=== PATIENT | female | born 1995 | race Two or more races ===

== ENCOUNTER 2019-08-22 02:42 | Inpatient (IN) | payer OTHER ==
[2019-08-22] MEDS ORDERED: RINGERS SOLUTION,LACTATED 1,000 ML IV ONE (03:05)
[2019-08-22] MEDS ORDERED: RINGERS SOLUTION,LACTATED 1,000 ML IV PRN (03:05)
[2019-08-22] MEDS ORDERED: LIDOCAINE 1% INJ-PF (10 MG/ML) 30 ML SDV ONE (03:12)
[2019-08-22] MEDS ORDERED: MISOPROSTOL 0.2 MG TABLET ONE (03:12)
[2019-08-22] MEDS ORDERED: OXYTOCIN 10 UNIT/ML VIAL ONE (03:12)
[2019-08-22] MEDS ORDERED: OXYTOCIN/NORMAL SALINE 20 UNIT/1,000 ML RTUINJ ONE (03:13)
[2019-08-22 03:28] LABS: ABSOLUTE EOSINOPHILS # (AUTO) 0.1 10^3/uL (0.0-0.6); ABSOLUTE MONOCYTES (AUTO) 0.6 10^3/uL (0.1-1.4); ABSOLUTE NEUT (AUTO) 6.2 10^3/uL (1.7-8.2); MEAN CORPUSCULAR HEMOGLOBIN 31.9 pg (27.0-33.4); TOTAL CELLS COUNTED % (AUTO) 100 %
[2019-08-22 03:50] LABS: ABSOLUTE LYMPHOCYTES (AUTO) 2.2 10^3/uL (0.5-4.7); BASOPHILS % (AUTO) 0.5 % (0-2); EOSINOPHILS % (AUTO) 1.2 % (0-6); HEMATOCRIT 35.4 % (36.0-47.0); HEMOGLOBIN 12.4 g/dL (12.0-15.5); LYMPHOCYTES % (AUTO) 23.6 % (13-45); MEAN CORPUSCULAR HGB CONC 34.9 g/dL (32.0-36.0); MEAN CORPUSCULAR VOLUME 91 fl (80-97); MONOCYTES % (AUTO) 6.3 % (3-13); PLATELET COUNT 207 10^3/uL (150-450); RED BLOOD COUNT 3.88 10^6/uL (3.72-5.28); RED CELL DISTRIBUTION WIDTH 13.8 % (11.5-14.0); SEGMENTED NEUTROPHILS % (AUTO) 68.4 % (42-78); WHITE BLOOD COUNT 9.1 10^3/uL (4.0-10.5)
[2019-08-22 03:53] LABS: APPEARANCE,URINE CLOUDY; BILIRUBIN,URINE NEGATIVE (NEGATIVE); COLOR,URINE RED; GLUCOSE, URINE NEGATIVE (NEGATIVE); KETONES,URINE NEGATIVE (NEGATIVE); LEUKOCYTE ESTERASE,URINE NEGATIVE (NEGATIVE); NITRITE,URINE NEGATIVE (NEGATIVE); PROTEIN,URINE 100 mg/dL (NEGATIVE); UROBILINOGEN,URINE NEGATIVE mg/dL (<2.0)
[2019-08-22 04:37] LABS: URINE AMPHETAMINES SCREEN NEGATIVE; URINE BARBITURATES SCREEN NEGATIVE; URINE BENZODIAZEPINES SCREEN NEGATIVE; URINE COCAINE SCREEN NEGATIVE; URINE MARIJUANA (THC) SCREEN NEGATIVE; URINE METHADONE SCREEN NEGATIVE; URINE PHENCYCLIDINE SCREEN NEGATIVE
[2019-08-22] MEDS ORDERED: PHENYLEPHRINE HCL INJ/PF 10 MG/1 ML SDV ONE (04:37)
[2019-08-22] MEDS ORDERED: FENTANYL/BUPIVACAINE/NS/PF 300 MCG/150 ML RTUINJ EPI ONE (04:38)
[2019-08-22] MEDS ORDERED: BUPIVACAINE HCL 0.25 % INJ/PF (2.5 MG/1 ML) 30 ML VIAL ONE (04:38)
[2019-08-22] MEDS ORDERED: EPHEDRINE SULFATE INJ 50 MG/1 ML AMPULE ONE (04:38)
[2019-08-22] MEDS ORDERED: FENTANYL CITRATE INJ/PF 100 MCG/2 ML AMPUL ONE (04:38)
[2019-08-22] MEDS ORDERED: CEFAZOLIN 2 GM/D5W RTU 2 GM/50 ML RTUPB IV ONE (08:23)
[2019-08-22] MEDS ORDERED: OXYTOCIN/NORMAL SALINE 1,000 ML IV PRN (08:34)
[2019-08-22] MEDS ORDERED: DIBUCAINE 1% OINTMENT 28 GM TP PRN (08:34)
[2019-08-22] MEDS ORDERED: ACETAMINOPHEN WITH CODEINE #3 TABLET PO PRN ×2 (08:34)
[2019-08-22] MEDS ORDERED: OXYTOCIN/NORMAL SALINE 20 UNIT/1,000 ML RTUINJ IV PRN (08:34)
[2019-08-22] MEDS ORDERED: DIPH/PERTUSS(ACELL)/TETANUS VAC/PF 0.5 ML SYR (>=10YO) IM PRN (08:34)
[2019-08-22] MEDS ORDERED: ZOLPIDEM TARTRATE 5 MG TABLET PO PRN (08:34)
[2019-08-22] MEDS ORDERED: BENZOCAINE/MENTHOL AEROSOL SPRAY 56 ML TOP PRN ×2 (08:34)
[2019-08-22] MEDS ORDERED: MEASLES,MUMPS&RUBELLA VACC/PF 0.5 ML VIAL SUBCUT PRN (08:34)
[2019-08-22] MEDS ORDERED: CEFAZOLIN INJ 1 GM VIAL ONE (08:40)
[2019-08-22] MEDS ORDERED: IBUPROFEN 800 MG TABLET PO SCH (08:45)
[2019-08-22 09:24] LABS: HEMATOCRIT 31.5 % (36.0-47.0); HEMOGLOBIN 10.8 g/dL (12.0-15.5); MEAN CORPUSCULAR HEMOGLOBIN 31.6 pg (27.0-33.4); MEAN CORPUSCULAR HGB CONC 34.2 g/dL (32.0-36.0); MEAN CORPUSCULAR VOLUME 93 fl (80-97); PLATELET COUNT 166 10^3/uL (150-450); RED CELL DISTRIBUTION WIDTH 13.7 % (11.5-14.0); WHITE BLOOD COUNT 12.9 10^3/uL (4.0-10.5)
[2019-08-22] MEDS ORDERED: SENNOSIDES/DOCUSATE 8.6-50 MG 1 EACH TABLET PO SCH ×2 (10:00)
[2019-08-22] MEDS ORDERED: (PENDING PHARMACY ID) (Prenatal Vits96/Iron Fum/Folic [Prenatal Tablet] 1 EACH) PO SCH (10:00)
[2019-08-22] MEDS ORDERED: PRENATAL VITAMIN W DHA CAPSULE PO SCH (10:00)
[2019-08-22] MEDS ORDERED: DOCUSATE SODIUM 100 MG CAPSULE PO SCH (10:00)
--- NOTE | 2019-08-22 11:36 | Admission Physical ---
Datetime Report Generated by CPN: 08/22/2019 11:36 CURRENT ADMISSION Chief Complaint: Uterine Contractions; Suspected Ruptured Membranes; Vaginal Bleeding Chief Complaint Other: Woke up in pain around 0130 with thin red fluid noted when she got up. Reports contractions coming every 2-3 minutes. Painful. Reports FM. Admit Impression : Term, Intrauterine ; Active Labor; Ruptured Membranes Admit Plan: Admit to Unit; Initiate Labor Protocol ALLERGIES Medication Allergies: No Medication Allergies: No Known Allergies (08/22/2019) Latex: No Latex Allergies OBSTETRICAL HISTORY EDC: 08/22/2019 00:00 : 1 Para: 0 Term: 0 : 0 SAB: 0 IAB: 0 Ectopic: 0 Livin Cesareans: 0 VBACs: 0 Multiple Births: 0 Gestational Diabetes: No Rh Sensitization: No Incompetent Cervix: No AMAN: No Infertility: No ART Treatment: No Uterine Anomaly: No IUGR: No Hx Previous C/S: No Macrosomia: No Hx Loss/Stillborn: No PIH: No Hx : No Placenta Previa/Abruption: No Depression/PP Depression: No PTL/PROM: No Post Hemorrhage: No Current Procedures: Ultrasound Obstetrical History Comments: G1 - current SEE RECORDS Alcohol: No Marijuana : No Cocaine: No Other Illicit Drugs: No Cigarettes: Former Smoker. 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 Heart Disease: No Hosp/Surgery: No Autoimmune Disorder: No Anesthetic Complications: No Kidney Disease: No Abnormal Pap Smear: No Neuro/Epilepsy: No Psychiatric Disorders: No Other Medical Diseases: No Hepatitis/Liver Disease: No Significant Family History: No Varicosities/Phlebitis: No Trauma/Violence : No Thyroid Dysfunction: No INFECTIOUS HISTORY Gonorrhea: No Genital Herpes: No Chlamydia: No Tuberculosis: No Syphilis: No Hepatitis: No HIV/AIDS Exposure: No Rash or Viral Illness: No HPV: No PHYSICAL EXAM General: Normal HEENT: Normal Neurologic: Normal Thyroid: Normal Heart: Normal Lungs: Normal Breast: Normal Back: Normal Abdomen: Normal Genitourinary Exam: Normal Extremities: Normal DTRs: Normal Pelvic Type: Adequate Physical Exam Comments: On vaginal exam, there was small amount of blood with mucus on glove after check of cervix which was thin, completely effaced and hair could be felt with head at +1 station. No blood flowing/trickling from vaginal opening Vital Signs: Reviewed VAGINAL EXAM Dilatation: 4 Effacement: 100 Station: 1 Contraction Comments: Contractions every 2 minutes MEMBRANES Membranes: Ruptured Amniotic Fluid Color: Bloody FETUS A EGA: 40.0 Monitoring: External US FHR- Baseline: 150 Variability: Moderate 6-25bpm Accelerations: Absent Decelerations: None FHR Category: Category I Presentation: Vertex Admit Comment: G1 at 40 wk EGA in active labor -Admit to LDR -NPO and IVFs -CEFM and toco -Painful ctx Q 2-3 minutes, wants epidural -Had Vaginal bleeding at home that patient describes as thin red fluid. On exam at bedside there was no blood under her on her chux pad but on exam of cervix small amount dark blood mixed with mucus on glove. Watched for further bleeding after exam and no trickle/flow noted. Abdomen soft between contractions. WIll monitor closely. Labs obtained. Cat 1 presently, no acels -Consented for delivery. ANticipate if remains stable. Anesthesia notified for epidural. PLANS FOR LABOR AND DELIVERY Labor and Delivery: None Pain Management: Epidural Feeding Preference: Both Benefit of Breast Feed Discussed: Yes Circumcision: N/A INFORMED CONSENT Informed Consent Obtained: Vaginal Delivery; Section Delivery; Vacuum/Forceps Assist; Risks, Benefits and Alternatives Discussed Signature: with User ID: Yoan : with User ID: [email or web address]
[2019-08-22] MEDS: DOCUSATE SODIUM 100 MG CAPSULE PO SCH ×2 (11:43→17:19)
[2019-08-22] MEDS: IBUPROFEN 800 MG TABLET PO SCH ×2 (11:44→13:14)
[2019-08-22] MEDS: FERROUS SULFATE 325 MG TABLET PO SCH ×2 (11:44→17:19)
[2019-08-22 15:08] VITALS: BP 112/68
[2019-08-22 15:23] LABS: ABSOLUTE BASOPHILS # (AUTO) 0.1 10^3/uL (0.0-0.2); ABSOLUTE LYMPHOCYTES (AUTO) 1.9 10^3/uL (0.5-4.7); ABSOLUTE MONOCYTES (AUTO) 0.9 10^3/uL (0.1-1.4); ABSOLUTE NEUT (AUTO) 10.2 10^3/uL (1.7-8.2); BASOPHILS % (AUTO) 0.9 % (0-2); EOSINOPHILS % (AUTO) 0.1 % (0-6); HEMATOCRIT 28.4 % (36.0-47.0); LYMPHOCYTES % (AUTO) 14.5 % (13-45); MEAN CORPUSCULAR HEMOGLOBIN 32.1 pg (27.0-33.4); MEAN CORPUSCULAR HGB CONC 35.2 g/dL (32.0-36.0); MEAN CORPUSCULAR VOLUME 91 fl (80-97); MONOCYTES % (AUTO) 7.1 % (3-13); PLATELET COUNT 186 10^3/uL (150-450); RED BLOOD COUNT 3.11 10^6/uL (3.72-5.28); RED CELL DISTRIBUTION WIDTH 14.1 % (11.5-14.0); SEGMENTED NEUTROPHILS % (AUTO) 77.4 % (42-78); TOTAL CELLS COUNTED % (AUTO) 100 %; WHITE BLOOD COUNT 13.2 10^3/uL (4.0-10.5)
--- NOTE | 2019-08-25 08:46 | Delivery Summary ---
Del Sum A-C Datetime Report Generated by CPN: 08/25/2019 08:45 DELIVERY PERSONNEL DELIVERY PERSONNEL: [id number] Delivery Doctor:: Gissell Broderick MD Labor and Delivery Nurse:: Mary Luong RNbehavioral sciences instructor Nurse:: Indy Montiel RN Assistant Professor Of Life Sciences:: Bernice Ku RN Neonatal Nurse Practitioner:: BRANDIN Parkinson Nursery Nurse:: Carmela Larose RN Supervisor [employer]/INDUSTRIAL METHODS CONSULTANT: Bisi Garsia ST Additional Personnel: : Tiana Harrison, RN MATERNAL INFORMATION Delivery Anesthesia: Epidural Medications After Delivery: Pitocin Bolus-Please Comment Delivery QBL: 150 Maternal Complications: Abruptio Placenta Complication Details: partial abruption Provider Comments: Called to patients room as she was having pressure and some blood on chux pad below her. WHen I arrived in room she was in kneeling position in bed and there was an area of blood on chux the size of a baseball. Cervix assessed and she was completely dilated and +2 station. Pushed for 1 hour and 50 minutes. Viable female delivered in vertex presentation. Infant with eyes open and attempting to take breaths but she sounded like needed suctioned. Cord doubly cut and clamped and infant handed off to RN from nursery immediately. Placenta delivered and an area of the placenta -approximately 1/8 appeared to be abrupted. Will send placenta to pathology. Fundal massage-firm. Repair of bilateral sulcus tears, second degree perineum and left labial laceration as above. Mother stable. to NICU wit h nursery staff LABOR SUMMARY EDC: 08/22/2019 00:00 No. Babies in Womb: 1 Attempted: No Labor Anesthesia: Epidural LABOR INFORMATION Reason for Induction: Not Applicable Onset of Labor: 08/22/2019 03:00 Complete Dilatation: 08/22/2019 06:06 Oxytocin: N/A Group B Beta Strep: negative Antibiotics # of Doses: 0 Antibiotics Time of Last Dose: n/a Steroids Given: None Reason Steroids Not Administered: Not Applicable MEMBRANES Membranes Rupture Method: Spontaneous Rupture of Membranes: 08/22/2019 01:30 Length of Rupture (hr): 6.33 Amniotic Fluid Color: Clear Amniotic Fluid Amount: Moderate Amniotic Fluid Odor: Normal STAGES OF LABOR Stage 1 hr: 3 Stage 1 min: 6 Stage 2 hr: 1 Stage 2 min: 44 VAGINAL DELIVERY Episiotomy: None Laceration #1: Perineal; Sulcus Laceration Extension #1: Second Degree Other Laceration: L labial, bilateral sulcus Laceration Repair: Yes Laceration Repair Note: Repaired with 2-0 chromic x2 in a layered closure Sponge Count Correct: Yes Sharps Count Correct: Yes CSECTION DELIVERY Primary Indication: N/A Secondary Indication: N/A CSection Incidence: N/A Labor: N/A Elective: N/A CSection Incision: N/A BABY A INFORMATION Infant Delivery Date/Time: 08/22/2019 07:50 Method of Delivery: Vaginal Born in Route : No : N/A Forceps: N/A Vacuum Extraction: N/A Shoulder Dystocia : No PRESENTATION/POSITION BABY A Presentation: Cephalic Presentation: Cephalic Cephalic Presentation: Vertex Vertex Position: Right Occipital Anterior Breech Presentation: N/A PLACENTA INFORMATION BABY A Placenta Method of Delivery: Spontaneous Placenta Status: Delivered SCORES BABY A Heart Rate 1 min: >100 bpm Resp Effort 1 min: Good Cry Reflex Irritability 1 min: No Response Muscle Tone 1 min: Flaccid Color 1 min: Blue/Pale SCORE 1 MIN: 4 Heart Rate 5 min: >100 bpm Resp Effort 5 min: Good Cry Reflex Irritability 5 min: [place] Muscle Tone 5 min: Some Flexion of Extremities Color 5 min: Body [place], Extremities Blue SCORE 5 MIN: 7 INFORMATION BABY A Gestational Age at Delivery: 40.0 Gestational Status: Full Term- 39- 40.6 Weeks Outcome : Liveborn Infant Condition : Fair Sex: Female IDENTIFICATION BABY A Infant Verification Date/Time: 08/22/2019 08:37 ID Band Number: [id number] Mother's Name Verified: Yes Infant RN Verifying Infant: M Elmira RN Additional Verifying Personnel: T Angel RN WEIGHT/LENGTH BABY A Birthweight (gm): 4012 Weight (lb): 8 Weight (oz): 14 Length (in): 21.25 Infant Length (cm): 53.98 CORD INFORMATION BABY A No. Cord Vessels: 3 Nuchal Cord : N/A Cord Blood Taken: Yes-For Storage (Mom's Blood type +) Suction: Mouth; Nose ASSESSMENT BABY A Infant Complications: Decreased Variability; Multiple Late Decels Physical Findings at Delivery: Caput Succedaneum; Molding of the Head Physical Findings- Other: see initial nursery assessment Respirations: Intercostal Retractions Communications Intern/ALS Called : No Infant Care By: Ye Larose RN Transferred To: NICU BABY B INFORMATION : N/A SIGNATURES Signature: with User ID: Yoan : with User ID: [email or web address]
== END 2019-08-22 19:00 | disposition home or self-care (01) | DRG 807 ==
LOC: LC 02:42 → LR 03:08 → 2S 10:51
PROVIDERS: ADMIT Obstetrics & Gynecology; ATTEND Obstetrics & Gynecology
PROC: 10E0XZZ Delivery of Products of Conception, External Approach (ICD-10-PCS; principal; 2019-08-22)
PROC: 0KQM0ZZ Repair Perineum Muscle, Open Approach (ICD-10-PCS; 2019-08-22)
PROC: 0UQMXZZ Repair Vulva, External Approach (ICD-10-PCS; 2019-08-22)
DX: O45.93 Premature separation of placenta, unspecified, third trimester (principal); Z37.0 Single live birth; O76 Abnormality in fetal heart rate and rhythm complicating labor and delivery; O70.1 Second degree perineal laceration during delivery; O71.89 Other specified obstetric trauma; Z3A.40 40 weeks gestation of pregnancy
CPT/HCPCS: 36415; 80307; 81005; 85025; 86592; 86850; 86900; 86901; 88307; 94760; J0690; J2370; J2590; J3010; J3490